=== PATIENT | male | born 1980 | race Two or more races ===

== ENCOUNTER 2024-10-04 16:27 | Emergency (ER) | payer MEDICAID, OTHER ==
[~2024-10-04] VITALS: Ht 182.9 cm; Wt 123.0 kg
[2024-10-04] MEDS: TETANUS-DIPTH-ACEL PERTUSSIS 0.5ML SYR Tdap IM ONE (18:55)
[2024-10-04] MEDS ORDERED: IBUP-1456 PO (19:06)
[2024-10-04] MEDS ORDERED: CLIN1CAP70 PO (19:06)
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
--- NOTE | 2024-10-04 19:29 | DVH ---
EXAMINATION: 4 views of the right hand CLINICAL HISTORY: right 4th finger pain/laceration COMPARISON: None Findings and impression: Comminuted and displaced fractures of the tip of the 4th distal phalanx with overlying soft tissue de fects / lacerations.
[2024-10-04] MEDS: ONDANSETRON ODT 4 MG TAB PO ONE (21:45)
[2024-10-04] MEDS: ceFAZolin 1GM/50ML 50 ML IV ONE (21:57)
[2024-10-04 22:05] VITALS: BP 134/78; PULSE 68; RESP 18; TEMP 97.9; O2SAT 94
[2024-10-04] MEDS: HYDROcodone-ACET 5/325MG TAB PO ONE (22:26)
[2024-10-05] MEDS: ceFAZolin 1GM/50ML 50 ML IV ONE (00:07)
== END 2024-10-05 01:05 | disposition home or self-care (01) ==
LOC: ER 16:27
DX: S61.214A Laceration without foreign body of right ring finger without damage to nail, initial encounter (principal); Z23 Encounter for immunization; W23.0XXA Caught, crushed, jammed, or pinched between moving objects, initial encounter; Y93.89 Activity, other specified; Y92.89 Other specified places as the place of occurrence of the external cause; Y99.8 Other external cause status
CPT/HCPCS: 12002; 73130; 90471; 90715; 96365; 96366; 99284; J0690; Q0162